=== PATIENT | male | born 1950 | race American Indian/Alaskan Native ===

== ENCOUNTER 2019-07-29 01:36 | Observation (INO) | payer MEDICARE ==
[2019-07-29] MEDS ORDERED: ASPIRIN 325 MG TAB PO ONE (01:57)
--- NOTE | 2019-07-29 02:25 | XRay Report ---
CHEST 1 VIEW INDICATION / CLINICAL INFORMATION: Chest Pain. COMPARISON: None available. FINDINGS: SUPPORT DEVICES: None. HEART / MEDIASTINUM: No significant abnormality. LUNGS / PLEURA: There is scarring at the left lung base but no infiltrate, edema or effusion. No pneu mothorax. ADDITIONAL FINDINGS: No significant additional findings. IMPRESSION: 1 No acute abnormality. Signer Name: Shahzad Reed MD Signed: 07/29/2019 2:20 AM Workstation Name: [id number]
[2019-07-29 02:35] LABS: Basophils % (Auto) 0.3 % (0.0-1.8); Eosinophils # (Auto) 0.4 K/mm3 (0.0-0.4); Eosinophils % (Auto) 3.9 % (0.0-4.3); Hematocrit 41.4 % (35.5-45.6); Lymphocytes # (Auto) 2.6 K/mm3 (1.2-5.4); Lymphocytes % (Auto) 28.8 % (13.4-35.0); Mean Corpuscular HGB Conc 34 % (32-34); Mean Corpuscular Volume 82 fl (84-94); Monocytes # (Auto) 0.8 K/mm3 (0.0-0.8); Monocytes % (Auto) 8.5 % (0.0-7.3); Platelet Count 264 K/mm3 (140-440); Red Blood Count 5.03 M/mm3 (3.65-5.03)
[2019-07-29] MEDS ORDERED: NITROGLYCERIN 0.4 MG TAB SUBL SL PRN (02:36)
[2019-07-29] MEDS ORDERED: FAMOTIDINE 20 MG/2 ML INJ IV ONE (02:36)
[2019-07-29] MEDS ORDERED: ACETAMINOPHEN 325 MG TAB PO ONE (02:36)
--- NOTE | 2019-07-29 02:36 | Emergency Department Report ---
ED Chest Pain HPI - General Chief Complaint: Chest Pain Stated Complaint: TIGHTNESS IN CHEST Time Seen by Provider: 07/29/19 02:29 Source: patient, RN notes reviewed Mode of arrival: Ambulatory Limitations: No Limitations - History of Present Illness Initial Comments: Primary care doctor: Dr Saldaña Past medical history: Patient dengiselle Patient is a 69-year-old gentleman who is not known to myself previously, presenting to the ER with a complaint of nontraumatic left-sided chest tightness, which started approximately 5 hours ago. The tightness is intermittent, and does not radiate anywhere. There is new onset exertional shortness of breath. There are no DVT or pulmonary embolism risk factors that he is aware of. There were no additional complaints. He had a routine cardiac stress test last year, as part of his routine physical examination through [facility] cardiology, although he reports he is not having symptoms. He is never had chest pain like this before that he can recall. No recent aspirin consumption. No family history of cardiac disease, DVT or pulmonary embolism that he is aware of. MD Complaint: chest pain -: Sudden Onset: during rest Pain Location: left chest Pain Radiation: none Quality: tightness, aching Improves With: rest Worsens With: exertion re: dyspnea Treatments Prior to Arrival: none Aspirin use within the Past 7 Days: (0) No - Related Data On Oral Contraceptives: No Allergies Allergy/AdvReac Type Severity Reaction Status Date / Time No Known Allergies Allergy Verified 07/29/19 02:37 Heart Score - HEART Score History: Moderately suspicious EKG: Non-specific Age: > 65 Risk factors: 1-2 risk factors Troponin: < normal limit HEART Score: 5 - Critical Actions Critical Actions: 4-6 pts:12-16.6% risk of adverse cardiac event. Should be admitted ED Review of Systems ROS: Stated complaint: TIGHTNESS IN CHEST Other details as noted in HPI Constitutional: denies: fever Eyes: denies: eye discharge ENT: denies: congestion Respiratory: shortness of breath Cardiovascular: chest pain Gastrointestinal: denies: nausea, vomiting Genitourinary: as per HPI Musculoskeletal: as per HPI Skin: as per HPI Neurological: as per HPI Psychiatric: as per HPI Hematological/Lymphatic: as per HPI ED Past Medical Hx - Past Medical History Previous Medical History?: No - Surgical History Past Surgical History?: No - Social History Smoking Status: Never Smoker ED Physical Exam - General Limitations: No Limitations General appearance: alert, anxious, obese - Head Head exam: Present: atraumatic, normocephalic - Eye Eye exam: Present: normal appearance, EOMI. Absent: nystagmus - ENT ENT exam: Present: normal exam, normal orophraynx, mucous membranes moist, normal external ear exam - Neck Neck exam: Present: normal inspection, full ROM. Absent: tenderness, meningismus - Respiratory Respiratory exam: Present: normal lung sounds bilaterally. Absent: respiratory distress, wheezes, rales, rhonchi, stridor, chest wall tenderness - Cardiovascular Cardiovascular Exam: Present: regular rate, normal rhythm, normal heart sounds. Absent: bradycardia, tachycardia, irregular rhythm, systolic murmur, diastolic murmur, rubs, gallop - GI/Abdominal GI/Abdominal exam: Present: soft, normal bowel sounds. Absent: distended, tenderness, guarding, rebound, rigid, pulsatile mass - Rectal Rectal exam: Present: deferred - Extremities Exam Extremities exam: Present: normal inspection, full ROM, other (2+ pulses noted in the bilateral upper and lower extremities. There is no palpable cord. negative Homans sign. Muscular compartments are soft. The pelvis is stable.). Absent: pedal edema, calf tenderness - Back Exam Back exam: Present: normal inspection, full ROM. Absent: tenderness, CVA tenderness (R), CVA tenderness (L), paraspinal tenderness, vertebral tenderness - Neurological Exam Neurological exam: Present: alert, normal gait, other (There is no facial droop. The tongue is midline. Extraocular movements are intact bilaterally. There is 5 out of 5 strength in bilateral upper and lower extremities. Sensation is intact to light touch bilateral upper and lower extremities. There is a normal gait.). Absent: motor sensory deficit - Psychiatric Psychiatric exam: Present: anxious - Skin Skin exam: Present: warm, dry, intact, normal color. Absent: rash ED Course Vital Signs 07/29/19 07/29/19 07/29/19 01:53 02:29 02:30 Temperature 99.0 F Pulse Rate 99 H Respiratory 18 Rate Blood Pressure 155/91 163/75 153/79 O2 Sat by Pulse 98 Oximetry 07/29/19 07/29/19 07/29/19 02:46 03:00 03:03 Temperature Pulse Rate 95 H 105 H 100 H Respiratory 13 17 Rate Blood Pressure 153/79 153/79 157/73 O2 Sat by Pulse 97 97 Oximetry 07/29/19 07/29/19 07/29/19 03:16 03:44 03:46 Temperature Pulse Rate 94 H Respiratory 14 Rate Blood Pressure 125/72 125/72 125/72 O2 Sat by Pulse 98 99 97 Oximetry - Reevaluation(s) Reevaluation #1: 07/29/19 03:25 Differential diagnosis, including not limited to: Acute coronary syndrome, stable angina, unstable angina, pneumonia, pneumothorax, pulmonary embolism Assessment and plan: 69-year-old gentleman, who appears to be obese, with a complaint of new onset chest pain and shortness of breath. He has a low-grade temperature and is tachycardic, and his EKG shows a left axis deviation without prior for comparison. He denied DVT and pulmonary embolism risk factors, and is low risk by Wells criteria, however, CT scan of the chest will be ordered given elevated d-dimer. We will also treat his symptoms. We will reassess after his data points have come back. He is at moderate risk for major adverse cardiac event as per the heart score, soft CAT scan nondiagnostic, we recommend admission to the medical service for accelerated cardiac risk stratification. Discussed this with patient who verbalizes understanding, and who is amenable to this plan of care. Reevaluation #2: 07/29/19 04:33 CT scan chest negative for acute disease. No pulmonary embolism identified. Patient feels improved after nitroglycerin. He is amenable to hospitalization. Hospital physician, Dr. Cox, to accept patient to the medical service PRATEEK score - Prateek Score Age > 65: (1) Yes Aspirin use within the Past 7 Days: (0) No 3 or more CAD Risk Factors: (0) No 2 or more Angina events in past 24 hrs: (0) No Known CAD with more than 50% Stenosis: (0) No Elevated Cardiac Markers: (0) No ST Deviation Greater than 0.5mm: (0) No PRATEEK Score: 1 ED Medical Decision Making - Lab Data Result diagrams: 07/29/19 02:14 07/29/19 02:14 Vital Signs 07/29/19 07/29/19 01:53 03:03 Temperature 99.0 F Pulse Rate 99 H 100 H Respiratory 18 Rate Blood Pressure 155/91 157/73 O2 Sat by Pulse 98 Oximetry Lab Results 07/29/19 07/29/19 07/29/19 Range/Units 02:14 02:14 02:14 WBC 9.1 (4.5-11.0) K/mm3 RBC 5.03 (3.65-5.03) M/mm3 Hgb 14.0 (11.8-15.2) gm/dl Hct 41.4 (35.5-45.6) % MCV 82 L (84-94) fl MCH 28 (28-32) pg MCHC 34 (32-34) % RDW 14.0 (13.2-15.2) % Plt Count 264 (140-440) K/mm3 Lymph % (Auto) 28.8 (13.4-35.0) % [place] % (Auto) 8.5 H (0.0-7.3) % Eos % (Auto) 3.9 (0.0-4.3) % Baso % (Auto) 0.3 (0.0-1.8) % Lymph # 2.6 (1.2-5.4) K/mm3 [place] # 0.8 (0.0-0.8) K/mm3 Eos # 0.4 (0.0-0.4) K/mm3 Baso # 0.0 (0.0-0.1) K/mm3 Seg Neutrophils % 58.5 (40.0-70.0) % Seg Neutrophils # 5.3 (1.8-7.7) K/mm3 PT (12.2-14.9) Sec. INR (0.87-1.13) D-Dimer (0-234) ng/mlDDU Sodium 138 (137-145) mmol/L Potassium 4.3 (3.6-5.0) mmol/L Chloride 101.1 (98-107) mmol/L Carbon Dioxide 24 (22-30) mmol/L Anion Gap 17 mmol/L BUN 22 H (9-20) mg/dL Creatinine 1.2 (0.8-1.5) mg/dL Estimated GFR > 60 ml/min BUN/Creatinine Ratio 18 % Glucose 116 H (75-100) mg/dL Calcium 9.6 (8.4-10.2) mg/dL Magnesium 2.10 (1.7-2.3) mg/dL Troponin T < 0.010 (0.00-0.029) ng/mL 07/29/19 Range/Units 02:40 WBC (4.5-11.0) K/mm3 RBC (3.65-5.03) M/mm3 Hgb (11.8-15.2) gm/dl Hct (35.5-45.6) % MCV (84-94) fl MCH (28-32) pg MCHC (32-34) % RDW (13.2-15.2) % Plt Count (140-440) K/mm3 Lymph % (Auto) (13.4-35.0) % [place] % (Auto) (0.0-7.3) % Eos % (Auto) (0.0-4.3) % Baso % (Auto) (0.0-1.8) % Lymph # (1.2-5.4) K/mm3 [place] # (0.0-0.8) K/mm3 Eos # (0.0-0.4) K/mm3 Baso # (0.0-0.1) K/mm3 Seg Neutrophils % (40.0-70.0) % Seg Neutrophils # (1.8-7.7) K/mm3 PT 12.5 (12.2-14.9) Sec. INR 0.92 (0.87-1.13) D-Dimer 774.08 H (0-234) ng/mlDDU Sodium (137-145) mmol/L Potassium (3.6-5.0) mmol/L Chloride (98-107) mmol/L Carbon Dioxide (22-30) mmol/L Anion Gap mmol/L BUN (9-20) mg/dL Creatinine (0.8-1.5) mg/dL Estimated GFR ml/min BUN/Creatinine Ratio % Glucose (75-100) mg/dL Calcium (8.4-10.2) mg/dL Magnesium (1.7-2.3) mg/dL Troponin T (0.00-0.029) ng/mL - EKG Data -: EKG Interpreted by Nd EKG shows normal: sinus rhythm Rate: normal - EKG Data When compared to previous EKG there are: previous EKG unavailable 07/29/19 03:25 There is no prior EKG available for comparison. Sinus rhythm, 96 bpm, left axis deviation, left ventricular hypertrophy, borderline left anterior fascicular block, QTC within normal limits, the EKG is abnormal, there is no prior for comparison, it is not consistent with ST elevation myocardial infarction. - Radiology Data Radiology results: pending, report reviewed, image reviewed Print Report Referring Physician: FATOU VALENTINE Patient Name: KRISTAL BOB Date of : 1950 Sex: Male Report Date: 2019-07-29 Report Status: Finalized Findings [facility] [address] [place] [address] XRay Report Signed Patient: KRISTAL BOB MR#: [id number] : 1950 Acct:[id number] Age/Sex: 69 / F ADM Date: 07/29/19 Loc: ED Attending Dr: Ordering Physician: FATOU VALENTINE MD Date of Service: 07/29/19 Procedure(s): XR chest 1V ap Accession Number(s): [id number] cc: ED MD MEME Fluoro Time In Minutes: CHEST 1 VIEW INDICATION / CLINICAL INFORMATION: Chest Pain. COMPARISON: None available. FINDINGS: SUPPORT DEVICES: None. HEART / MEDIASTINUM: No significant abnormality. LUNGS / PLEURA: There is scarring at the left lung base but no infiltrate, edema or effusion. No pneumothorax. ADDITIONAL FINDINGS: No significant additional findings. IMPRESSION: 1 No acute abnormality. Signer Name: Shahzad Reed MD Signed: 07/29/2019 2:20 AM Workstation Name: [id number] Transcribed By: Dictated By: Shahzad Reed MD Electronically Authenticated By: Shahzad Reed MD Signed Date/Time: 07/29/19219 DD/ 8 TD/TT: Critical care attestation.: If time is entered above; I have spent that time in minutes in the direct care of this critically ill patient, excluding procedure time. ED Disposition Clinical Impression: Acute chest pain, Dyspnea, Abnormal EKG Disposition: OP ADMIT IP TO THIS HOSP Is pt being admited?: Yes Does the pt Need Aspirin: Yes Condition: Stable Instructions: Chest Pain (ED) Referrals: KAVITA MEDRANO [Other] - 3-5 Days
[2019-07-29 02:50] LABS: BUN/Creatinine Ratio 18; Blood Urea Nitrogen 22 mg/dL (9-20); Calcium 9.6 mg/dL (8.4-10.2); Hemolysis Index 25
[2019-07-29 03:04] LABS: INR 0.92 (0.87-1.13)
[2019-07-29] MEDS ORDERED: SODIUM CHLORIDE 0.9% 500 ML 500 ML IV ONE (03:20)
--- NOTE | 2019-07-29 04:31 | Cat Scan Report ---
CT angiography of the chest with 2-D reconstructions INDICATION: Chest pain and shortness of breath Thin section axial images were obtained as well as 2-D reformatted MIP images in all 3 planes FINDINGS: There is no hilar or mediastinal adenopathy. No pleural or pericardial effusion. Lung windo ws show no nodules, masses or infiltrates. There is no thoracic aortic aneurysm or dissection present . Routine axial images as well as 2-D reconstructions through the pulmonary arteries show no evidence of emboli. Low-density liver lesions appear to be cysts. There are calcified left pleural plaques. IMPRESSION: Negative chest CTA Automated exposure control was utilized to diminish radiation dose. Signer Name: Shahzad Reed MD Signed: 07/29/2019 4:26 AM Workstation Name: [id number]
[2019-07-29] MEDS ORDERED: MORPHINE 2 MG/1 ML INJ IV PRN (05:38)
[2019-07-29] MEDS ORDERED: ONDANSETRON 4 MG/2 ML INJ IV PRN (05:38)
[2019-07-29] MEDS ORDERED: ACETAMINOPHEN 325 MG TAB PO PRN (05:38)
--- NOTE | 2019-07-29 05:41 | History and Physical Report ---
History of Present Illness History of present illness: 69-year-old male with no medical problem comes emergency room for evaluation. He states that he started having tightness in his chest around 10 PM last night, located on the right and on the left, constant, intensity 5/10, no radiation, cannot identify exacerbating factor. Admits to shortness of breath, no nausea vomiting, diaphoresis or palpitation. He had a stress test in December which was negative. Patient will be admitted for chest pain evaluation Review Of Systems: Constitutional: no weight loss, fever, chills Ears, eyes, nose, mouth and throat: no nasal congestion, no nasal discharge, no sinus pressure, blurry vision, diplopia Neck: No neck pain or rigidity. Cardiovascular: No palpitations Respiratory: No shortness of breath, cough Gastrointestinal: No hematochezia Genitourinary : no dysuria, frequency Musculoskeletal: no muscle ache , joint pain Integumentary: no rash, no pruritis Neurological: no parathesias, focal weakness Endocrine: no cold or heat intolerance, no polyuria or polydipsia Hematologic/Lymphatic: no easy bruising, no easy bleeding, no gland swelling Allergic/Immunologic: no urticaria, no angioedema. PAST MEDICAL HISTORY: None PAST SURGICAL HISTORY: None SOCIAL HISTORY: Denies alcohol, tobacco, drugs FAMILY HISTORY: Hypertension Medications and Allergies Allergies Allergy/AdvReac Type Severity Reaction Status Date / Time No Known Allergies Allergy Verified 07/29/19 02:37 Active Meds: Active Medications Enoxaparin Sodium (Enoxaparin) 30 mg SUB-Q QDAY MICHAEL Nitroglycerin (Nitrostat) 0.4 mg SL .Q5MIN PRN PRN Reason: Chest Pain Last Admin: 07/29/19 03:03 Dose: 0.4 mg Documented by: Exam - Physical Exam Narrative exam: Gen. appearance: Patient lying in bed, no apparent distress HEENT: Normocephalic, atraumatic, pupils equally round and reactive to light, extraocular movement intact, and no sclericterus,. No JVD or thyromegaly or nodule,neck supple, no carotid bruit ,mucous membranes moist, no exudate or erythema Heart: S1, S2, regular rate and rhythm Lungs: Clear bilaterally, breathing comfortable Abdomen: Positive bowel sounds, nontender, nondistended, no organomegaly Extremity: no edema, cyanosis, clubbing Skin: No rash, nodules, warm, dry Neuro: speech is fluent, cranial nerves II to XII intact, motor and sensory intact - Constitutional Vitals: Temp Pulse Resp BP Pulse Ox 99.0 F 94 H 14 125/72 97 07/29/19 01:53 07/29/19 03:16 07/29/19 03:16 07/29/19 03:46 07/29/19 03:46 Results - Labs CBC & Chem 7: 07/29/19 02:14 07/29/19 02:14 Labs: Abnormal lab results 07/29/19 07/29/19 07/29/19 Range/Units 02:14 02:14 02:40 MCV 82 L (84-94) fl [place] % (Auto) 8.5 H (0.0-7.3) % D-Dimer 774.08 H (0-234) ng/mlDDU BUN 22 H (9-20) mg/dL Glucose 116 H (75-100) mg/dL - Imaging and Cardiology EKG: image reviewed Chest x-ray: image reviewed CT scan - chest: report reviewed Assessment and Plan Assessment Chest pain Check cardiac enzymes, consult cardiology Start aspirin, IV morphine DVT prophylax
[2019-07-29] MEDS ORDERED: ENOXAPARIN 30 MG/0.3 ML INJ SUB-Q SCH (10:00)
[2019-07-29] MEDS ORDERED: ENOXAPARIN 40 MG/0.4 ML INJ SUB-Q SCH (10:00)
[2019-07-29] MEDS ORDERED: ASPIRIN 81 MG TAB CHEW PO SCH (10:00)
--- NOTE | 2019-07-29 10:20 | Progress Note ---
Assessment and Plan Assessment and plan: Patient is 69-year-old man without any medical problem who presents with chest pains. He had a stress test in December which was negative. Patient will be admitted obs for chest pain evaluation * CTA chest: negative for PE * SHANELL score: 1 Chest pain: negative cardiac enzymes, await Cardiology input History Interval history: Patient was seen and examined. Follow-up on current diagnosis. Overnight uneventful as no events directly reported to me. Patient denies any chest pain, shortness breath, nausea/vomiting or severe headaches. Imaging, nursing note, chart, labs and old chart reviewed. Discussed with patient. Hospitalist Physical - Physical exam Narrative exam: Gen: WDWN, NAD, Awake, Alert, Orientated HEENT: NCAT, EOMI, PERRL, OP Clear Neck: supple, no adenopathy, no thyromegaly, no JVD CVS/Heart: RRR, normal S1S2, pulses present bilaterally Chest/Lungs: CTA B, Symmetrical chest expansion, good air entry bilaterally GI/Abdomen: soft, NTND, good bowel sounds, no guarding or rebound /Bladder: no suprapubic tenderness, no CVA or paraspinal tenderness Extermity/Skin: no c/c/e, no obvious rash MSK: FROM x 4 Neuro: CN 2-12 grossly intact, no new focal deficits Psych: calm - Constitutional Vitals: Temp Pulse Resp BP Pulse Ox 98.1 F 76 18 133/77 95 07/29/19 09:01 07/29/19 09:01 07/29/19 09:01 07/29/19 09:01 07/29/19 09:20 SHANELL score - Shanell Score Age > 65: (1) Yes Aspirin use within the Past 7 Days: (0) No 3 or more CAD Risk Factors: (0) No 2 or more Angina events in past 24 hrs: (0) No Known CAD with more than 50% Stenosis: (0) No Elevated Cardiac Markers: (0) No ST Deviation Greater than 0.5mm: (0) No SHANELL Score: 1 Results - Labs CBC & Chem 7: 07/29/19 02:14 07/29/19 02:14 Labs: Laboratory Last Values WBC 9.1 K/mm3 (4.5-11.0) 07/29/19 02:14 RBC 5.03 M/mm3 (3.65-5.03) 07/29/19 02:14 Hgb 14.0 gm/dl (11.8-15.2) 07/29/19 02:14 Hct 41.4 % (35.5-45.6) 07/29/19 02:14 MCV 82 fl (84-94) L 07/29/19 02:14 MCH 28 pg (28-32) 07/29/19 02:14 MCHC 34 % (32-34) 07/29/19 02:14 RDW 14.0 % (13.2-15.2) 07/29/19 02:14 Plt Count 264 K/mm3 (140-440) 07/29/19 02:14 Lymph % (Auto) 28.8 % (13.4-35.0) 07/29/19 02:14 [place] % (Auto) 8.5 % (0.0-7.3) H 07/29/19 02:14 Eos % (Auto) 3.9 % (0.0-4.3) 07/29/19 02:14 Baso % (Auto) 0.3 % (0.0-1.8) 07/29/19 02:14 Lymph # 2.6 K/mm3 (1.2-5.4) 07/29/19 02:14 [place] # 0.8 K/mm3 (0.0-0.8) 07/29/19 02:14 Eos # 0.4 K/mm3 (0.0-0.4) 07/29/19 02:14 Baso # 0.0 K/mm3 (0.0-0.1) 07/29/19 02:14 Seg Neutrophils % 58.5 % (40.0-70.0) 07/29/19 02:14 Seg Neutrophils # 5.3 K/mm3 (1.8-7.7) 07/29/19 02:14 PT 12.5 Sec. (12.2-14.9) 07/29/19 02:40 INR 0.92 (0.87-1.13) 07/29/19 02:40 D-Dimer 774.08 ng/mlDDU (0-234) H 07/29/19 02:40 Sodium 138 mmol/L (137-145) 07/29/19 02:14 Potassium 4.3 mmol/L (3.6-5.0) 07/29/19 02:14 Chloride 101.1 mmol/L (98-107) 07/29/19 02:14 Carbon Dioxide 24 mmol/L (22-30) 07/29/19 02:14 Anion Gap 17 mmol/L 07/29/19 02:14 BUN 22 mg/dL (9-20) H 07/29/19 02:14 Creatinine 1.2 mg/dL (0.8-1.5) 07/29/19 02:14 Estimated GFR > 60 ml/min 07/29/19 02:14 BUN/Creatinine Ratio 18 % 07/29/19 02:14 Glucose 116 mg/dL (75-100) H 07/29/19 02:14 Calcium 9.6 mg/dL (8.4-10.2) 07/29/19 02:14 Magnesium 2.10 mg/dL (1.7-2.3) 07/29/19 02:14 Troponin T < 0.010 ng/mL (0.00-0.029) 07/29/19 04:45 Active Medications - Current Medications Current Medications: Generic Name Dose Route Start Last Admin Trade Name Freq PRN Reason Stop Dose Admin Acetaminophen 650 mg 07/29/19 05:38 Tylenol PO Q4H PRN Pain MILD(1-3)/Fever >100.5/ANNE Aspirin 81 mg 07/29/19 10:00 Baby Aspirin PO QDAY [facility] Enoxaparin Sodium 40 mg 07/29/19 10:00 Enoxaparin SUB-Q QDAY@1000 [facility] Morphine Sulfate 2 mg 07/29/19 05:38 Morphine IV Q4H PRN Pain, Moderate (4-6) Nitroglycerin 0.4 mg 07/29/19 02:36 07/29/19 03:03 Nitrostat SL 0.4 mg .Q5MIN PRN Administration Chest Pain Ondansetron HCl 4 mg 07/29/19 05:38 Zofran IV Q8H PRN Nausea And Vomiting Sodium Chloride 10 ml 07/29/19 10:00 Sodium Chloride Flush Syringe 10 Ml IV BID MICHAEL Sodium Chloride 10 ml 07/29/19 05:38 Sodium Chloride Flush Syringe 10 Ml IV PRN PRN LINE FLUSH
--- NOTE | 2019-07-29 11:26 | Consultation ---
History of Present Illness Consult date: 07/29/19 Consult reason: chest pain History of present illness: This is a 69-year old male with no prior cardiac history who is admitted with chest pain. Patient describes chest pain as tightness associated with shortness of breath. He denies dizziness. There was no syncope. A chest x-ray is negative and a chest CTA scan reports no evidence of PE. Cycled troponins were negative and his ECG is sinus rhythm, no acute ischemic changes. Cardiac consultation has been requested. Today, patient reports he is feeling better. He denies chest pain, tightness and unusual shortness of breath. Medications and Allergies Allergies Allergy/AdvReac Type Severity Reaction Status Date / Time No Known Allergies Allergy Verified 07/29/19 02:37 Active Meds: Active Medications Acetaminophen (Tylenol) 650 mg PO Q4H PRN PRN Reason: Pain MILD(1-3)/Fever >100.5/ANNE Aspirin (Baby Aspirin) 81 mg PO QDAY [facility] Last Admin: 07/29/19 11:21 Dose: 81 mg Documented by: Enoxaparin Sodium (Enoxaparin) 40 mg SUB-Q QDAY@1000 [facility] Last Admin: 07/29/19 11:21 Dose: 40 mg Documented by: Morphine Sulfate (Morphine) 2 mg IV Q4H PRN PRN Reason: Pain, Moderate (4-6) Nitroglycerin (Nitrostat) 0.4 mg SL .Q5MIN PRN PRN Reason: Chest Pain Last Admin: 07/29/19 03:03 Dose: 0.4 mg Documented by: Ondansetron HCl (Zofran) 4 mg IV Q8H PRN PRN Reason: Nausea And Vomiting Sodium Chloride (Sodium Chloride Flush Syringe 10 Ml) 10 ml IV BID [facility] Last Admin: 07/29/19 11:21 Dose: 10 ml Documented by: Sodium Chloride (Sodium Chloride Flush Syringe 10 Ml) 10 ml IV PRN PRN PRN Reason: LINE FLUSH Physical Examination Vital Signs Temp Pulse Resp BP Pulse Ox 99.0 F 99 H 18 155/91 98 07/29/19 01:53 07/29/19 01:53 07/29/19 01:53 07/29/19 01:53 07/29/19 01:53 General appearance: no acute distress HEENT: Positive: PERRL Neck: Positive: trachea midline Cardiac: Positive: Reg Rate and Rhythm Lungs: Positive: Normal Breath Sounds Neuro: Positive: Grossly Intact Extremities: Absent: edema Results 07/29/19 02:14 07/29/19 02:14 Coagulation 07/29/19 Range/Units 02:40 PT 12.5 (12.2-14.9) Sec. INR 0.92 (0.87-1.13) CBC 07/29/19 Range/Units 02:14 WBC 9.1 (4.5-11.0) K/mm3 RBC 5.03 (3.65-5.03) M/mm3 Hgb 14.0 (11.8-15.2) gm/dl Hct 41.4 (35.5-45.6) % Plt Count 264 (140-440) K/mm3 Lymph # 2.6 (1.2-5.4) K/mm3 [place] # 0.8 (0.0-0.8) K/mm3 Eos # 0.4 (0.0-0.4) K/mm3 Baso # 0.0 (0.0-0.1) K/mm3 Comprehensive Metabolic Panel 07/29/19 Range/Units 02:14 Sodium 138 (137-145) mmol/L Potassium 4.3 (3.6-5.0) mmol/L Chloride 101.1 (98-107) mmol/L Carbon Dioxide 24 (22-30) mmol/L BUN 22 H (9-20) mg/dL Creatinine 1.2 (0.8-1.5) mg/dL Glucose 116 H (75-100) mg/dL Calcium 9.6 (8.4-10.2) mg/dL Assessment and Plan Chest pain Shortness of breath Normal LVEF 55-60% by echo 02/2019. An MPI done 01/2019 reports a reversible defect of moderate intensity in the apical inferior wall. Patient was recommended for a left cardiac catheterization for ischemic evaluation but he has declined. Patient prefers to follow up as an outpatient with his primary product strategy director. Stable cardiac camilo for discharge today. Patient advised to follow up in our office within 3 days.
[2019-07-30 05:44] VITALS: BP 126/69
--- NOTE | 2019-07-30 09:29 | Event Note ---
Date: 07/30/19 Patient denied cardiac cath and left AMA this am.
== END 2019-07-30 08:36 | disposition left against medical advice (07) ==
LOC: ED 01:36 → SUATTDRO 01:36 → INTOOBSV 05:24 → 4A 05:24
PROVIDERS: ADMIT Internal Medicine; ATTEND Internal Medicine
DX: R07.89 Other chest pain (principal); R06.00 Dyspnea, unspecified; R94.31 Abnormal electrocardiogram [ECG] [EKG]
CPT/HCPCS: 36415; 71045; 71275; 80048; 83735; 84484; 85025; 85379; 85610; 93005; 93010; 96372; 96374; 99285; G0378; J1650; J7040; Q9967